=== PATIENT | male | born 1990 | race Caucasian/White ===

== ENCOUNTER 2020-11-10 21:16 | Emergency (ER) | payer OTHER, SELFPAY ==
--- NOTE | ~2020-11-10 | XR_ITS ---
EXAMINATION: XR hand RT min 3V INDICATION: Right hand pain, initial encounter TECHNIQUE: Three views of the right hand are obtained. COMPARISON: None available FINDINGS: There is an acute, traumatic, closed, comminuted fracture at the base of the fourth metacar pal. There also appears to be lucency at the base of the fifth metacarpal. Heterotopic ossification p rojects at the base of the fifth metacarpal. There is soft tissue swelling of the hand near the bases of the fourth and fifth metacarpals. The osseous structures are otherwise unremarkable. IMPRESSION: 1. Findings consistent with fractures at the bases of the fourth and fifth metacarpals with possible additional chronic fracture at the base of the fifth metacarpal. Reviewed, dictated and finalized at location A. [place] ATTENDANT IMPRESSION: 1. Findings consistent with fractures at the bases of the fourth and fifth meta carpals with possible additional chronic fracture at the base of the fifth meta carpal.
[2020-11-10 21:18] VITALS: BP 113/64; PULSE 106; RESP 18; TEMP 36.6; O2SAT 100
--- NOTE | 2020-11-10 21:24 | ED_ITS ---
HPI - Extremity Injury (Upper) General Chief Complaint: Extremity Injury, Upper Stated Complaint: right hand pain Time Seen by Provider: 11/10/20 21:24 History of Present Illness HPI narrative: Pain and swelling in the right hand after closing it in a car door a few hours ago. Pain worsening. No numbness, weakness, wound. Related Data Allergies Allergy/AdvReac Type Severity Reaction Status Date / Time No Known Allergies Allergy Verified 11/10/20 21:18 Review of Systems Review of Systems: All systems reviewed & are unremarkable except as noted in HPI and below Constitutional: Constitutional: Denies chills, Denies fever(s) and Denies weakness Cardiovascular: Cardiovascular: Denies chest pain Respiratory: Respiratory: Denies dyspnea Musculoskeletal: Musculoskeletal: Denies back pain Neurologic: Denies numbness and Denies weakness [facility] Past Medical History Medical History (Updated 11/11/20 @ 06:11 by Charlie Crockett MD) Healthy adult Social History Social History Gender identity (if verbalized by the patient): Male Exam Const: General: healthy appearing, no acute distress and alert Orientation/consciousness: patient oriented x3 HENMT: Head: normal to inspection Resp: Effort & Inspection: normal respiratory effort Cardio: Other: 2 + right radial pulse Skin: Other: bruising to the right hand Neuro: General: patient oriented x3, moves all extremities, no meningeal signs, no focal motor deficits and CN's II-XI intact bilaterally Speech: normal speech Extrem: Other: tenderness over the lateral carpals and proximal metacarpals Course Vital Signs Vital signs: Vital Signs Temperature 36.6 C 11/10/20 21:18 Pulse Rate 106 H 11/10/20 21:18 Respiratory Rate 18 11/10/20 21:18 Blood Pressure 113/64 11/10/20 21:18 Pulse Oximetry 100 11/10/20 21:18 Temperature 36.6 C 11/10/20 21:18 Pulse Rate 106 H 11/10/20 21:18 Respiratory Rate 18 11/10/20 21:18 Blood Pressure 113/64 11/10/20 21:18 Pulse Oximetry 100 11/10/20 21:18 Procedures Orthopedic Splinting/Casting Injury #1: Splinting/Casting Date: 11/10/20 Side: right OCL: ulnar gutter Pre-Procedure Neuro Vascular Exam: normal Post-Procedure Neuro Vascular Exam: normal Discharge Plan Discharge Clinical Impression: Fracture of hand Patient Disposition: Home, Self-Care Condition: Stable Instructions: Hand Fracture (ED) Prescriptions: New hydrocodone-acetaminophen [[place]] 5-325 mg tablet 1 tablet PO Q6H PRN (Reason: pain) Qty: 7 RF: 0 ibuprofen 600 mg tablet 600 mg PO QID PRN (Reason: pain) Qty: 30 RF: 0 Follow-up/Referrals: Wes Laguerre MD [Physician] - Chato Gregg MD [Physician] - 2 Weeks PHYSICIAN,LUMBER STACKER OPERATOR [Primary Care Provider] -
[2020-11-10] MEDS: HYDROcodone/acetaminophen (*CRX) 5-325 MG TABLET 1 TAB PO (22:07)
== END 2020-11-10 22:47 | disposition home or self-care (01) ==
PROVIDERS: Emergency Provider Emergency Medicine
DX: S62.141A Displaced fracture of body of hamate [unciform] bone, right wrist, initial encounter for closed fracture (principal); S62.314A Displaced fracture of base of fourth metacarpal bone, right hand, initial encounter for closed fracture; W23.0XXA Caught, crushed, jammed, or pinched between moving objects, initial encounter
CPT/HCPCS: 29125; 73130; 99284; A9270

== ENCOUNTER 2020-11-19 01:56 | Outpatient (CLI) | payer OTHER, SELFPAY ==
[2020-11-20 01:24] LABS: SARS-CoV-2 RNA PCR Negative
== END 2020-11-19 01:57 | disposition home or self-care (01) ==
LOC: ANHCOVIDDT 01:56
PROVIDERS: Visit Provider Plastic Surgery
DX: Z01.812 Encounter for preprocedural laboratory examination (principal); Z20.828 Contact with and (suspected) exposure to other viral communicable diseases
CPT/HCPCS: 87635; C9803; U0003

== ENCOUNTER 2020-11-23 00:56 | Day surgery (SDC) | payer OTHER, SELFPAY ==
[2020-11-17 14:13] VITALS: BMI 20.2
[2020-11-17 14:31] VITALS: BMI 20.2
[2020-11-23] VITALS (7 sets, daily range): BP systolic 111–129; BP diastolic 61–72; PULSE 72–98; RESP 12–20; TEMP 36.6–37.1; O2SAT 95–100
--- NOTE | ~2020-11-23 | XR_ITS ---
XR surgery orthopedic XR surgery orthopedic INDICATION: ORIF right metacarpal fourth and fifth TECHNIQUE: Fluoroscopy used during intraoperative fixation of the right fourth and fifth metacarpals performed by [Chato Gregg MD] on 11/23/2020. Thoracic peak time is 1 minute 5 seconds. 7 fl uoroscopic images captured.. ] FINDINGS: There are 2 K wires transfixing the third, fourth and fifth metacarpal bases. There are scr ews involving the base of the fourth metacarpal and the adjacent carpal bone. Correlate with procedur e note. IMPRESSION: Fluoroscopy used during ORIF of the right fourth and fifth metacarpals. Please refer to p rocedural report.. Reviewed, dictated and finalized at location A. [place] TECHNICIAN IMPRESSION: Fluoroscopy used during ORIF of the right fourth and fifth metacarp als. Please refer to procedural report..
--- NOTE | 2020-11-23 07:13 | WPDHPUPDATE1 ---
History and Physical Update Update Date/Time: 11/23/20 07:13 History and Physical has been reviewed, including an updated exam of the patient. There are NO changes in the patient's condition. Risks, benefits, and alternatives have been discussed and questions answered. Patient agrees to proceed with procedure.
--- NOTE | 2020-11-23 08:30 | WPDANESEPPF ---
Anes - Initial Pre Proc Eval Procedure: Operation Date: 11/23/20 11:00 Proposed Procedures p Open Reduction Internal Fixation Of Right Fourth, Right Fifth Metacarpal And Hamate - Chato Gregg MD Date/Time: 11/23/20 08:30 Surgeon: Chato Gregg MD Pre Op Diagnosis: Fx of Right Fourth,Fifth Metacarpal and Hamates Patient Data Age: 30 Gender: M Height: 1.93 m Weight: 75.3 kg Allergies Allergy/AdvReac Type Severity Reaction Status Date / Time No Known Allergies Allergy Verified 11/23/20 08:45 Home Medications Medication Instructions Recorded Confirmed Type No Home Medications 11/17/20 11/23/20 History Patient hx anesthesia problems: none Family hx anesthesia problems: none PMFSH Past Medical History Medical History (System 11/14/20 @ 09:36 by Sweetie Houston) Healthy adult Social History Social History (System 11/14/20 @ 09:36 by Sweetie Houston) Smoking packs per day: 0.5 Smoking cigarettes per day: 10.0 Years smoked: 12 Smoking pack-years: 6.00 Smoking status: Current every day smoker Tobacco type: cigarettes Alcohol intake: current Substance use: current Substance use type: marijuana Last use: DAILY Living arrangements: with family Gender identity (if verbalized by the patient): Male Spiritual care concerns: No Anes - Eval Final PreProcedure Day of Procedure 11/23/20 08:30 Patient weight: normal Heart: regular rate and rhythm Lungs: clear to auscultation and normal air movement Airway: Mallampati scale class II Neurological: alert and oriented Last oral intake: >/= 8 hours ASA classification: II Emergent: no Anesthetic plan: proceed Anesthesia type and monitoring: general LMA and standard monitoring Informed Consent: The patient's anesthetic plan and its attendant risks and benefits were discussed with the patient/family/POA. Questions were solicited and answers provided to the satisfaction of the patient/family/POA.
[2020-11-23] MEDS: LACTATED RINGERS 1,000 ML 30 ML IV CONT ×2 (09:00→14:28)
[2020-11-23] MEDS: ceFAZolin 2 GM/D5W 50 ML 2 GM/50 ML BAG IVPB (12:02)
[2020-11-23] MEDS: BUPIVACAINE HCL 0.5% PF 30 ML VIAL 10 ML INFILTRATE (12:27)
[2020-11-23] MEDS: LIDO 1%/EPINEPHRINE 1:100,000 20 ML VIAL 10 ML INFILTRATE (12:27)
[2020-11-23] MEDS: fentaNYL CITRATE INJ (*CRX) 100 MCG/2 ML VIAL 25 MCG IV PUSH ×4 (14:54→15:08)
--- NOTE | 2020-11-23 15:05 | P.OPB_ITS ---
Procedure Note - Brief Procedure Note - Brief Date of procedure: 11/23/20 Pre-op diagnosis: Fx of Right Fourth,Fifth Metacarpal and Hamates Post-op diagnosis: same Procedure performed: ORIF right 4th metacarpal and hamate, reduction of subluxation of 5th metacarpal. Anesthesia: GLMA and GETA Surgeon: Chato Gregg MD Electrification Adviser: Nimesh Estimated blood loss (mL): 5 Tourniquet time (min): 110 Drains: No Packing: No Pathology: none sent Complications: No immediate complications Condition: stable Disposition: PACU
--- NOTE | 2020-11-23 15:08 | P.OP_ITS ---
Procedure Note - Detailed Date of procedure: 11/23/20 Pre-op diagnosis: Fx of Right Fourth,Fifth Metacarpal and Hamates Post-op diagnosis: same Procedure performed: Open reduction and internal fixation of the right hamate and 4th metacarpal base. Reduction of subluxation of the right 5th metacarpal base. Description of procedure: The patient he was marked in preop after removing his splint and bandage. He was taken to the operating room where he was placed supine on the operating table. A time-out was held and confirmed. He was given general endotracheal anesthesia. The right upper extremity was prepped and draped in the usual fashion. The site was marked for incision. It was locally infiltrated with 1% lidocaine with epinephrine. The extremity was elevated and the tourniquet inflated to 250 mmHg. The incision was made as marked and dissection was carried through the subcu tissue down to the extensor tendons and deep fascia. X-ray was brought in and the actual site of the hamate metacarpal joint was marked. The incision was made through the fascia exposing the base of the 4th metacarpal and the hamate. The hamate and base of the 5th metacarpal were not actually as connected as we expected. The joint capsule appeared to have been ruptured in the remote past. The patient had informed me that he had a similar type of injury some years ago and it was not operated. It seemed as we went through the surgery some evidence of old trauma was seen. The 5th metacarpal was easily reduced. Considerable time was spent dissecting the base of the 4th metacarpal which also appeared to perhaps been involved in an old injury. The hamate was also explored and the dorsal cortex was intact but cleaved from the palmar body. There was a small fragment in between. We were able to reduce the 4th metacarpal base and fix it with a 2 mm bicortical screw. That bone was soft and began to crack with placement of the screw. The hamate was reduced and fixed with a 2 mm lag screw. The 5th 4th and 3rd metacarpals were stabilized with transfixing 0.045 and C wires driven transversely across the 3. All reductions and fixations were imaged with the C- arm. The site was irrigated the muscle and the fascia were repaired with 4-0 Vicryl sutures. The dermis was closed with 4-0 Vicryl in a couple of spots the skin with running 5 0 nylon. Cutaneous nerves were identified early in the case and protected throughout. The patient had been given 2 g of Ancef preop 0.5% Marcaine was injected around the fracture areas. A palmar resting splint was applied leaving radial digits free to use. Ancef 2 grams was given before the case. Marcaine 0.5 % was injected into the area at the end of the case. He was discharged with a prescription for hydrocodone #12. Surgeon: Chato Gregg MD
[2020-11-23] MEDS: oxyCODONE HCL (*CRX) 5 MG TAB IR PO (15:38)
== END 2020-11-23 16:16 | disposition home or self-care (01) ==
PROVIDERS: Visit Provider Plastic Surgery
PROC: (CPT 26615; principal; 2020-11-23 11:00)
DX: S62.314A Displaced fracture of base of fourth metacarpal bone, right hand, initial encounter for closed fracture (principal); S62.141A Displaced fracture of body of hamate [unciform] bone, right wrist, initial encounter for closed fracture; S63.061A Subluxation of metacarpal (bone), proximal end of right hand, initial encounter; W23.0XXA Caught, crushed, jammed, or pinched between moving objects, initial encounter; F17.210 Nicotine dependence, cigarettes, uncomplicated
CPT/HCPCS: 26615; 25645; 26705; 87635; A9270; C1713; C9803; J0690; J1100; J2250; J2405; J2704; J3010; J7120; U0003